=== PATIENT | male | born 1960 | race Caucasian/White ===

== ENCOUNTER → 2020-03-21 07:52 | Outpatient (BNVA) | payer BC, SELFPAY | PROVIDERS: Family Provider Nurse Practitioner Family; PCP Nurse Practitioner Family; Visit Provider Urology | DX: Z12.5 Encounter for screening for malignant neoplasm of prostate (principal); N40.1 Benign prostatic hyperplasia with lower urinary tract symptoms | CPT/HCPCS: 81001 ==

== ENCOUNTER → 2020-08-14 09:37 | Outpatient (BNVA) | payer BC, SELFPAY | PROVIDERS: Family Provider Nurse Practitioner Family; PCP Nurse Practitioner Family; Visit Provider Specialist | DX: R20.0 Anesthesia of skin (principal); G56.02 Carpal tunnel syndrome, left upper limb | CPT/HCPCS: 95908 ==

== ENCOUNTER → 2021-03-20 08:39 | Outpatient (BNVA) | payer BC, SELFPAY | PROVIDERS: Family Provider Nurse Practitioner Family; PCP Registered Nurse; Visit Provider Urology | DX: N40.1 Benign prostatic hyperplasia with lower urinary tract symptoms (principal) | CPT/HCPCS: 81003 ==

== ENCOUNTER → 2021-05-22 08:00 | Outpatient (BNVA) | payer BC, SELFPAY | PROVIDERS: Family Provider Nurse Practitioner Family; PCP Registered Nurse; Visit Provider Urology | DX: N40.1 Benign prostatic hyperplasia with lower urinary tract symptoms (principal); R39.9 Unspecified symptoms and signs involving the genitourinary system; Z20.822 Contact with and (suspected) exposure to COVID-19 | CPT/HCPCS: 81003; 87635 ==

== ENCOUNTER 2021-05-27 15:54 | Observation (INO) | payer BC, SELFPAY ==
[2021-05-24 10:19] VITALS: BMI 29.7
[2021-05-27] VITALS (16 sets, daily range): BP systolic 101–158; BP diastolic 49–92; PULSE 57–84; RESP 12–18; TEMP 36.1–37.1; O2SAT 92–97
--- NOTE | 2021-05-27 12:21 | ANES.PREANE2 ---
Pre-Anesthetic Assessment Pre-Anesthetic Assessment: Height/Weight: Height 1.7 m Weight 86.183 kg Temp Pulse Resp BP Pulse Ox 98 F 57 L 18 138/92 96 05/27/21 11:56 05/27/21 11:56 05/27/21 11:56 05/27/21 11:56 05/27/21 11:56 Preop Diagnosis: BPH with obstruction, refractory Proposed Procedure: Operation Date: 05/27/21 13:00 Proposed Procedures s Transurethral Resection/Vaporization Of Prostate(Not Applicable) - Tony Lee MD p Cystoscopy N40.1(Not Applicable) - Tony Lee MD Familial anesthetic complications: None Was Beta Génesis taken within 24 hours: N/A Was Clonidine taken within 24 hours: N/A Last intake: Intake Last Liquid Date 05/27/21 Last Liquid Time 06:00 Last Solid Date 05/26/21 Last Solid Time 21:00 Social: Social History: No alcohol and No tobacco Exam: Pre-Anes Outpt Exam: alert, oriented x 3, clear to auscultation bilaterally and regular rate & rhythm Airway: Cervical ROM: WNL MP: 2 Dentition: Full Anesthetic Plan: ASA status: 1 Anesthesia: General Risk of > 500 ml blood loss (7ml/kg in children): No PFSH Anesthesia PFSH: Medical History BPH loc w urin obs/LUTS Decreased hearing Erectile dysfunction Hyperlipidemia Surgical History H/O vasectomy S/P carpal tunnel release Family History Family/Other CAD (coronary artery disease) Diabetes Social History Alcohol intake: never Marital status: Current occupational status: employed Data Anesthesia Cardiac Studies: No Data to Display
--- NOTE | 2021-05-27 13:29 | P.HPUD_ITS ---
Surgery/Procedure H&P Update DATE OF PROCEDURE: May 27, 2021 DATE H&P PERFORMED: 05/22/21 H&P UPDATE INFORMATION: I have reviewed H&P completed within last 30 days, I have examined patient prior to procedure, No changes to prior documentation and H&P is in [facility] [place] EMR on date indicated PREOP DIAGNOSIS: BPH with obstruction, refractory PLANNED PROCEDURE: Operation Date: 05/27/21 13:00 Proposed Procedures s Transurethral Resection/Vaporization Of Prostate(Not Applicable) - Tony Lee MD p Cystoscopy N40.1(Not Applicable) - Tony Lee MD
--- NOTE | 2021-05-27 13:35 | P.OP_ITS ---
Operative Report Date of procedure: May 27, 2021 Pre-op Diagnosis: BPH with obstruction, refractory Post-op diagnosis: same Procedure Done: 1. Cystoscopy, transurethral resection/vaporization of the prostate Specimens removed/disposition: Prostate chips Pathology: Prostate chips Surgeon: Jesus Anesthesia: General Estimated blood loss: Less than 100 cc Urine output: Not measured Complications: None Findings: Trilobar enlargement of the prostate with intravesically protruding median lobe. Moderately trabeculated bladder with some cellule formation. Condition: stable Disposition: PACU Brief History: Naseem is a very pleasant 60-year-old white male with years of progressive bladder light obstructive symptoms with initial improvement but not durably so to alpha blockers. Primary complaints include both obstructive and irritative symptoms. If he missed a dose of Flomax he often developed near retention. Recent cystoscopy in the clinic demonstrated enlarged prostate with trilobar enlargement as well as chronic bladder wall changes consistent with obstruction including trabeculation cellule formation etc. No evidence of prostate cancer on GUALBERTO or PSAs. Ultimately he requested proceeding with surgical intervention and options were thoroughly discussed with final decision for TURP/TUVP. Procedure: After routine preoperative evaluation examination and obtaining of informed consent he was taken to the operating suite on 05/27/2021 where general anesthesia was administered without difficulty after appropriate timeout was performed, SCDs confirmed to be functioning, preoperative antibiotics administered, beta-jeana protocol confirmed. Prepped and draped in the usual sterile fashion in dorsolithotomy position paying careful attention to avoiding pressure points. 21 Moldovan cystoscope with 30 degree lens was introduced into the urethra meatus and advanced into the bladder under videoscopy. The bladder was systematically examined with 30 and 70 degree lenses. Findings seen in the clinic were confirmed without no additional pathology identified. The urethra was calibrated with Sharon sounds and easily accommodated 30 Moldovan 2% lidocaine jelly was instilled into the urethra then a 25 Moldovan continuous- flow resectoscope sheath which was well-lubricated was advanced into the bladder with the visual obturator without difficulty. The gyrus bipolar system was utilized section. Super loop was used initially followed by the vaporization button. At the beginning of the procedure both orifices were easily identified well away from the bladder neck and the verumontanum was easily identified. Resection was initiated at the bladder neck circumferentially to open up the proximal prostate. Resection was then directed from the bladder neck out to but not distal to the verumontanum at roughly the 1 o'clock position and extending this posteriorly down to about the 5 o'clock position. This was then conducted on the opposite side in the same longitudinal extent and depth. There was a large amount of floor tissue and this was carefully trimmed away. Also at the level of the verumontanum there remained some adenoma tissue carefully resected avoiding straying distal to the verumontanum. All chips were evacuated from the bladder. The button probe was then utilized for the remainder of the procedure meticulous hemostasis was obtained along with sculpting of the prostatic fossa utilizing vaporizing current. A large amount of tissue was resected and equal amount was vaporized on estima te At the completion of the procedure the prostatic fossa was wide open, hemostasis was very good, no residual chips were in the bladder. The bladder was drained with a 22 Moldovan three-way Hurley catheter with 30 cc placed in the balloon. Light CBI was initiated prophylactically and the patient was awakened in the operating room and returned to the recovery room in stable condition. PLANS: 1. Anticipate discharge tomorrow on postoperative day #1 without Hurley catheter if voids well and voiding trial
[2021-05-27] MEDS: levofloxacin-dextrose 5 % 500 MG/100 ML PREMIX 100 MG IV (13:50)
[2021-05-27] MEDS: lidocaine 2% Urojet 20 mL TOPICAL (14:13)
--- NOTE | 2021-05-27 16:37 | ANE.PACU2 ---
Inpatient post-anesthesia follow up: Airway intact: Yes Vital signs: Temperature 97.8 F Pulse Rate 62 Respiratory Rate 16 Blood Pressure 111/66 Pulse Oximetry 96 Oxygen Delivery Me thod Room Air Oxygen Flow Rate Fraction of Inspir ed Oxygen Hydration adequate: Yes Nausea and vomiting: No Pain level: 2 Mental status: Baseline
[2021-05-27] MEDS: tamsulosin 0.4 mg Capsule PO (17:19)
[2021-05-27] MEDS: lactated ringers 1,000 ML 100 ML IV (17:19)
[2021-05-27] MEDS: docusate sodium 100 mg Capsule PO (17:19)
[2021-05-27] MEDS: HYDROcodone-acetaminophen 5-325 mg Tablet 1 TAB PO (17:31)
[2021-05-28] VITALS: BP 111/64; PULSE 64; RESP 17; TEMP 36.8; O2SAT 96
[2021-05-28] MEDS: lactated ringers 1,000 ML 100 ML IV (02:54)
[2021-05-28 03:50] VITALS: BP 107/64; PULSE 62; RESP 16; TEMP 36.4; O2SAT 95
--- NOTE | 2021-05-28 06:54 | PM.DCS ---
Discharge Providers Date of Admission: 05/27/21 15:54 Date of Discharge: May 28, 2021 Attending Provider at Admission: Tony Lee MD Attending Provider at Discharge: Tony Lee MD Primary Care Provider: VIVIAN Blount Diagnoses at Discharge Discharge Diagnosis (1) BPH loc w urin obs/LUTS: Status: Acute Permanent problem details: Failed medical therapy. TUVP 05/27/2021. (2) Lower urinary tract symptoms (LUTS): Status: Acute Permanent problem details: Chronic progressive secondary to BPH/obstruction Reason for Visit Reason for Visit: cystoscopy Hospital Course Hospital Course He was admitted on the day of the procedure which significant amount of tissue intravesically protruding into the bladder. He was wide open at the completion of the procedure and a prostatic fossa was hemostatic. Both orifices were well away from the resection site as was the resection around but not distal to the verumontanum. On postoperative day #1 his Hurley catheter was removed and he voided spontaneously with clearing urine. He felt that he was empty. Bladder scan: Prior to voiding was 110 cc, he voided 120 cc. Urine was light pink. Discharged on postoperative day #1 in stable condition with plans for follow-up in about 6 weeks. Encouraged him to avoid straining >10 pounds, also encouraged him to keep his bowels soft. Informed him how to reach me if there is any concerns or questions. Physical Exam Const: COMMON NORMALS: no acute distress, alert and well nourished GENERAL APPEARANCE: well kempt and well developed ORIENTATION/CONSCIOUSNESS: not confused Neck/C-Spine: COMMON NORMALS: full ROM Resp: COMMON NORMALS: normal respiratory effort EFFORT & INSPECTION: No labored and No Actively coughing Extremity: COMMON NORMALS: no clubbing, cyanosis or edema Neuro: COMMON NORMALS: no focal motor deficits SENSORIUM/ORIENTATION: Yes alert Psych: COMMON NORMALS: mental status grossly normal APPEARANCE: Yes grossly normal and Yes well kempt ATTITUDE: Yes calm and Yes engaged Skin: COMMON NORMALS: no rashes or lesions noted and no jaundice GENERAL SKIN EXAM: no rashes or lesions noted Urinary Catheter Management^: 3-way Urethral CBI: Cath Placed During This Visit: yes Reason for Continuing Indwelling Catheter: Other Urinary Catheter Date of Insertion: 05/27/21 Urinary Catheter Time of Insertion: 15:15 Discharge Data Data Completed and Pending: Pending at discharge Category Date Time Status Pathology: Surgic al [PTH] Routine Pth 05/27/21 15:32 Ordered Vitals: Last Vital Signs Temp 97.5 F L 05/28/21 03:50 Pulse 62 05/28/21 03:50 Resp 16 05/28/21 03:50 BP 107/64 05/28/21 03:50 Pulse Ox 95 05/28/21 03:50 Discharge Plan Discharge Patient Disposition: Home Condition: Stable Prescriptions: New cephalexin 500 mg capsule 500 mg PO BID 7 Days Qty: 14 RF: 0 Continued tamsulosin 0.4 mg capsule 0.4 mg PO BID Qty: 180 RF: 3 Referrals: Tony Lee MD [Physician] - Discharge Diet: Usual diet Discharge Activity: Limit activity as instructed Patient Instructions: Opioid Safety Activity Restrictions/Additional Instructions: 1. The procedure went 2. Avoid lifting >10 pounds for 2 to 3 weeks. This is very important Discharge Attestations Time Spent in Discharge Care*: less than 30 min Quality Metrics Clinical Quality Measures During this hospital stay, did patient experience: None Coding Level of Care Code Acute Chg FW DC note Exam Detailed Diagnoses BPH loc w urin obs/LUTS N40.1 Lower urinary tract symptoms (LUTS) R39.9
[2021-05-28] MEDS: tamsulosin 0.4 mg Capsule PO (07:20)
[2021-05-28] MEDS: docusate sodium 100 mg Capsule PO (07:20)
[2021-05-28] MEDS: HYDROcodone-acetaminophen 5-325 mg Tablet 1 TAB PO (07:20)
[2021-05-28 07:36] VITALS: BP 108/61; PULSE 64; RESP 17; TEMP 36.9; O2SAT 97
--- NOTE | 2021-05-28 10:28 | PC.CHAP ---
Pastoral Care Encounter/Spiritual Assessment Type of Contact [] Declined screen maker visit [] Patient/Family/Request visit [] Outpatient visit [] Follow-up visit [] Physician referral [] Code/Alert [x] Routine visit [] Staff referral [] Actively dying [] Patient sleeping [] Family support [] [] Out of room [] Palliative care [] [] Receiving care in room [] Pre-surgical visit [] Trauma [] Long length of stay [] ICU visit [] Other: Relational/Emotional Strength [x] Patient feels connected with others/family/visitors/staff [] Distress [] Loneliness/isolation [] Abandonment Spirituality of Patient [x] Person of Samina [x] Attends Restorationist of their Samina [x] Believes in Prayer [x] Reads Bible or Confucianism materials [] There are Spiritual issues to be addressed Discharge Planner Interventions [x] Prayer [x] Active listening [x] Non-anxious presence [x] Spiritual/emotional support [] Crisis/trauma care [] Spiritual counseling [] Bereavement support [] Provided bereavement packet [] Provided Bible/devotional materials [] Provided toy/stuffed animal, coloring book to patient or family member [] Provided Communion [] Anointing/[place] [] Salvation [x] Completed spiritual assessment [] Other: Impact on Illness or Injury [] Angry [] Fearful [] Anxious [] Often cries [] Exhaustion [] Unable to work [] Unable to attend evangelical [] Unable to walk/stand [] Unable to read [] Unable to drive [] Unable to eat/drink [] Unable to sleep [] Unable to be with family [] Patient intubated [] Other: Summary Pt has had surgery and expecting to be released later today. Pt's was in the room during visit. Time spent with patient 20 m
[2021-05-28 11:40] VITALS: BP 102/57; PULSE 67; RESP 17; TEMP 36.7; O2SAT 94
--- NOTE | 2021-05-28 12:14 | PC.NURSE ---
bladder scanned patient and results are 110ml. patient urinated 100ml. Dr Lee in room and said patient will be discharged today
--- NOTE | 2021-05-28 14:02 | PC.NURSE ---
discharge instructions given to patient and family. patient and family verbalized understanding of instructions. patient taken to private vehicle via wheelchair.
[2021-05-28 14:03] VITALS: BP 102/57; PULSE 67; RESP 17; TEMP 36.7; O2SAT 94
--- NOTE | 2021-05-29 12:45 | PC.SOCIAL ---
discharge follow up call made. spoke with patient. patient denies slight discomfort with urination and a small about of blood. pt picked up medication from the pharmacy and he is taking as directed. patient is aware of follow up appointment with dr. pedroza 07-09. discussed not lifting anymore than 10lbs for 2-3 weeks, pt verbalized understanding.
== END 2021-05-28 14:04 | disposition home or self-care (01) ==
LOC: MEDSURG 15:56
PROVIDERS: Admitting Provider Urology; PCP Registered Nurse; Visit Provider Urology
PROC: 0VT08ZZ Resection of Prostate, Via Natural or Artificial Opening Endoscopic (ICD-10-PCS; CPT 52601; principal; 2021-05-27 13:00)
PROC: 0TJB8ZZ Inspection of Bladder, Via Natural or Artificial Opening Endoscopic (ICD-10-PCS; CPT 52000; 2021-05-27 13:00)
DX: N40.1 Benign prostatic hyperplasia with lower urinary tract symptoms (principal); N13.8 Other obstructive and reflux uropathy; E78.5 Hyperlipidemia, unspecified
CPT/HCPCS: 52601; 88305; G0378; J1100; J1956; J2405; J2704; J3010; J3490

== ENCOUNTER → 2021-07-09 10:01 | Outpatient (BNVA) | payer BC, SELFPAY | PROVIDERS: PCP Registered Nurse; Visit Provider Urology | DX: N40.1 Benign prostatic hyperplasia with lower urinary tract symptoms (principal) | CPT/HCPCS: 81003 ==

== ENCOUNTER → 2022-03-20 08:20 | Outpatient (BNVA) | payer BC, SELFPAY | PROVIDERS: PCP Registered Nurse; Visit Provider Urology | DX: Z12.5 Encounter for screening for malignant neoplasm of prostate (principal); N40.1 Benign prostatic hyperplasia with lower urinary tract symptoms | CPT/HCPCS: 36415; 81003; G0103 ==

== ENCOUNTER → 2023-12-17 10:31 | Outpatient (BNVA) | payer BC, SELFPAY | PROVIDERS: PCP Registered Nurse; Visit Provider Nurse Practitioner Family | DX: L91.8 Other hypertrophic disorders of the skin (principal) | CPT/HCPCS: 88305 ==